=== PATIENT | female | born 1945 | race Caucasian/White ===

== ENCOUNTER 2017-12-27 16:35 | Emergency (ER) | payer MEDICARE ==
[~2017-12-27] VITALS: Ht 175.3 cm; Wt 108.4 kg
--- NOTE | 2017-12-27 16:39 | NUR ---
[id number] FROM STORE: GENERALIZED WEAKNESS, NEAR SYNCOPY. VSS. NEG ACUTE DISTRESS. EQUAL RIB CUTTER, STEADY GATE, EQUAL FACIAL SYMMETRY. WILL CONTINUE TO MONITOR. SAFETY MEASURES IN PLACE. CALL LIGHT WITHIN REACH.
--- NOTE | 2017-12-27 17:02 | NUR ---
LABS DRAWN AT BEDSIDE.
--- NOTE | 2017-12-27 17:02 | NUR ---
UNDERGOING EKG AT BEDSIDE
[2017-12-27 17:14] LABS: BASOPHILS % (AUTO) 0.2 % (0.0-2.0); EOSINOPHILS % (AUTO) 0.4 % (0.0-6.0); HEMATOCRIT 32 % (33-45); HEMOGLOBIN 10.9 g/dL (11.5-14.8); LYMPHOCYTES # (AUTO) 0.7 /CMM (0.8-4.8); LYMPHOCYTES % (AUTO) 5.6 % (20.0-44.0); MEAN CORPUSCULAR HGB CONC 34 g/dl (31.0-36.0); MEAN CORPUSCULAR VOLUME 84 fL (82-100); MONOCYTES # (AUTO) 0.4 /CMM (0.1-1.30); MONOCYTES % (AUTO) 3.3 % (2.0-12.0); NEUTROPHILS % (AUTO) 90.5 % (43.0-81.0); PLATELET COUNT (AUTO) 336 /CMM (150-450); RDW COEFFICIENT OF VARIATION 15.2 (11.5-15.0); RED BLOOD CELL COUNT(AUTO) 3.83 MIL/uL (4.0-5.2); WHITE BLOOD COUNT (AUTO) 13.2 K/uL (4.3-11.0)
[2017-12-27 17:27] LABS: CALCIUM, SERUM 9.4 mg/dL (8.5-10.1); CARBON DIOXIDE 29 mmol/L (21-32); CHLORIDE 105 mmol/L (98-107); CREATININE 1.3 mg/dL (0.6-1.3); GLUCOSE 146 mg/dL (74-106); POTASSIUM 3.8 mmol/L (3.5-5.1); SODIUM SERUM 140 mmol/L (136-145); UREA NITROGEN, BLOOD 31 mg/dL (7-18)
[2017-12-27 17:36] LABS: TROPONIN I < 0.017 ng/mL (0.00-0.056)
[2017-12-27 17:38] LABS: INR 0.97 (0.85-1.15)
--- NOTE | 2017-12-27 18:07 | NUR ---
1L NS GIVEN 20G LAC ORDERED BY MD
[2017-12-27] MEDS ORDERED: IV NS 0.9% 1,000 ML BAG IV ONE (18:30)
--- NOTE | 2017-12-27 18:42 | NUR ---
PATIENT TAKEN TO RADIOLOGY VIA STRETCHER.
--- NOTE | 2017-12-27 18:54 | NUR ---
PATIENT RETURNED FROM RADIOLOGY IN STABLE CONDITION.
--- NOTE | 2017-12-27 19:04 | NUR ---
PT STABLE CONDITION. VSS. ENDORSED TO RN HOV.
--- NOTE | 2017-12-27 19:13 | NUR ---
RECEIVED REPORT FROM DESTINEY LAUGHLIN AND DESTINEY RIVERA FOR JENNIFER.
[2017-12-27 20:36] VITALS: BP 154/67
== END 2017-12-27 20:38 | disposition home or self-care (01) ==
LOC: ER 16:39
DX: E86.0 Dehydration (principal); R42 Dizziness and giddiness; E64.9 Sequelae of unspecified nutritional deficiency; I10 Essential (primary) hypertension; Z86.73 Personal history of transient ischemic attack (TIA), and cerebral infarction without residual deficits; Z98.84 Bariatric surgery status; Z88.2 Allergy status to sulfonamides; Z60.2 Problems related to living alone
CPT/HCPCS: 36415; 70450; 80048; 84484; 85025; 85730; 93005; 96360; 99285; A4606; J7030; Z7610